=== PATIENT | male | born 1965 | race Caucasian/White ===

== ENCOUNTER 2016-12-18 01:29 | Emergency (ER) | payer SELFPAY | END 2016-12-18 03:28 | disposition home or self-care (01) | LOC: D.ER 01:29 | DX: S30.861A Insect bite (nonvenomous) of abdominal wall, initial encounter (principal); S80.861A Insect bite (nonvenomous), right lower leg, initial encounter; S80.862A Insect bite (nonvenomous), left lower leg, initial encounter; S40.261A Insect bite (nonvenomous) of right shoulder, initial encounter; S40.262A Insect bite (nonvenomous) of left shoulder, initial encounter; S20.469A Insect bite (nonvenomous) of unspecified back wall of thorax, initial encounter; W57.XXXA Bitten or stung by nonvenomous insect and other nonvenomous arthropods, initial encounter; Y93.89 Activity, other specified; Y92.029 Unspecified place in mobile home as the place of occurrence of the external cause; F17.200 Nicotine dependence, unspecified, uncomplicated ==

== ENCOUNTER 2017-12-25 22:20 | Emergency (ER) | payer MEDICAID ==
[~2017-12-25] VITALS: Ht 177.8 cm; Wt 81.8 kg
[2017-12-25 22:22] VITALS: Ht 177.8 cm; Wt 81.8 kg
[2017-12-25] MEDS ORDERED: OMEPRAZOLE40 MG (22:25)
[2017-12-25] MEDS ORDERED: OXY IR30 MG (22:25)
[2017-12-25] MEDS ORDERED: FENTANYL PATCH TRANSDERM (22:26)
[2017-12-25 23:21] LABS: BASOPHILS 0.2 % (0-2); EOSINOPHILS 0.5 % (0-7); HEMOGLOBIN 15.7 g/dL (13.5-17.5); IMMATURE GRANULOCYTES 0.2 % (0-5); LYMPHOCYTES 13.9 % (15-50); MCH 31.9 pg (26.0-34.0); MCHC 34.9 g/dL (31.0-37.0); MCV 91.5 fL (80.0-100.0); MONOCYTES 6.3 % (2-11); NEUTROPHILS 78.9 % (40-80); PLATELET COUNT 211 10x3/uL (130-400); RBC 4.92 10x6/uL (4.20-6.10); RDW 12.6 % (11.5-14.5); WBC 13.1 10x3/uL (4.8-10.8)
[2017-12-25 23:23] LABS: ALBUMIN 4.5 g/dL (3.4-5.0); ALKALINE PHOSPHATASE 92 U/L (46-116); ALT (SGPT) 58 U/L (10-68); BILIRUBIN - TOTAL 0.47 mg/dL (0.2-1.3); CALC OSMOLALITY 280 mosm/kg (275-300); CALCIUM 9.7 mg/dL (8.5-10.1); CARBON DIOXIDE 28.3 mmol/L (21.0-32.0); CHLORIDE - SERUM 101 mmol/L (98-107); CREATININE - SERUM 1.1 mg/dL (0.6-1.3); GLUCOSE 98 mg/dL (74-106); PROTEIN - SERUM 9.3 g/dL (6.4-8.2); SODIUM 140 mmol/L (136-145); UREA NITROGEN 18 mg/dL (7-18); eGFR NON AFRICAN AMERICAN 75 mL/min (90-120)
[2017-12-25 23:35] LABS: AMYLASE - SERUM 281 U/L (25-115); CKMB 0.8 U/L (0.0-3.6); CREATINE KINASE 90 UL (21-232); LIPASE 215 U/L (73-393); TROPONIN-I < 0.017 ng/mL (0.000-0.060)
[2017-12-25 23:44] LABS: UDS - AMPHET NEGATIVE QUAL (NEGATIVE); UDS - BARB NEGATIVE QUAL (NEGATIVE); UDS - BENZO NEGATIVE QUAL (NEGATIVE); UDS - COCAINE POSITIVE QUAL (NEGATIVE); UDS - OPIATE POSITIVE QUAL (NEGATIVE); UDS - PCP NEGATIVE QUAL (NEGATIVE); UDS - THC NEGATIVE QUAL (NEGATIVE)
[2017-12-25 23:47] LABS: APPEARANCE HAZY (CLEAR); BILIRUBIN NEGATIVE (NEGATIVE); COLOR YELLOW (YELLOW); GLUCOSE NEGATIVE (NEGATIVE); KETONE NEGATIVE (NEGATIVE); NITRITE NEGATIVE (NEGATIVE); PROTEIN 1+ mg/dL (NEGATIVE); UROBILINOGEN NORMAL (NORMAL)
[2017-12-25 23:50] LABS: BACTERIA FEW /hpf (NONE SEEN); EPITHELIAL CELLS 0-5 /hpf (0-5); RED CELLS - URINE 0-5 /hpf (0-5)
[2017-12-26] MEDS ORDERED: BENTYL10 MG PO (00:53)
[2017-12-26] MEDS ORDERED: ZOFRAN4 MG PO (00:53)
[2017-12-26 01:15] VITALS: BP 129/70
== END 2017-12-26 01:18 | disposition home or self-care (01) ==
LOC: D.ER 22:20
PROVIDERS: Family Medicine
DX: K29.70 Gastritis, unspecified, without bleeding (principal); K76.9 Liver disease, unspecified; K21.9 Gastro-esophageal reflux disease without esophagitis; F17.200 Nicotine dependence, unspecified, uncomplicated

== ENCOUNTER 2019-07-03 09:11 | Inpatient (IN) | payer MEDICAID ==
[~2019-07-03] VITALS: Ht 177.8 cm; Wt 68.0 kg
[~2019-07-03 09:11] MED LIST: BENTYL10 MG PO; FENTANYL PATCH TRANSDERM; OMEPRAZOLE40 MG; OXY IR30 MG; ZOFRAN4 MG PO
[2019-07-03 09:38] LABS: BASOPHILS 0.1 % (0-2); EOSINOPHILS 0.4 % (0-7); HEMATOCRIT 37.8 % (42.0-54.0); HEMOGLOBIN 12.5 g/dL (13.5-17.5); IMMATURE GRANULOCYTES 0.6 % (0-5); LYMPHOCYTES 16.3 % (15-50); MCH 28.7 pg (26.0-34.0); MCHC 33.1 g/dL (31.0-37.0); MCV 86.7 fL (80.0-100.0); MEAN PLATELET VOLUME 8.7 fL (7.4-10.4); NEUTROPHILS 74.6 % (40-80); RBC 4.36 10x6/uL (4.20-6.10); RDW 14.2 % (11.5-14.5); WBC 15.7 10x3/uL (4.8-10.8)
[2019-07-03 09:41] LABS: PLATELET COUNT 278 10x3/uL (130-400)
[2019-07-03 09:47] LABS: CALC OSMOLALITY 264 mosm/kg (275-300); CALCIUM 9.3 mg/dL (8.5-10.1); CARBON DIOXIDE 23.1 mmol/L (21.0-32.0); CHLORIDE - SERUM 97 mmol/L (98-107); CREATININE - SERUM 1.2 mg/dL (0.6-1.3); GLUCOSE 130 mg/dL (74-106); POTASSIUM - SERUM 3.6 mmol/L (3.5-5.1); SODIUM 130 mmol/L (136-145); UREA NITROGEN 17 mg/dL (7-18); eGFR NON AFRICAN AMERICAN 67 mL/min (90-120)
[2019-07-03 09:56] LABS: ALBUMIN 3.4 g/dL (3.4-5.0); ALKALINE PHOSPHATASE 71 U/L (30-120); ALT (SGPT) 18 U/L (10-68); AMYLASE - SERUM 98 U/L (25-115); BILIRUBIN - TOTAL 0.94 mg/dL (0.2-1.3); LIPASE 99 U/L (73-393); TROPONIN-I < 0.017 ng/mL (0.000-0.060)
[2019-07-03 10:24] VITALS: BP 111/65
[2019-07-03 11:04] LABS: C-REACTIVE PROTEIN 16.4 mg/dL (0.0-0.9)
[2019-07-03 11:15] VITALS: BP 97/68
--- NOTE | 2019-07-03 11:18 | NUR ---
REPORT TO HERIBERTO CARRANZA
--- NOTE | 2019-07-03 11:20 | NUR ---
ADMIT TO ROOM # 2210, CONDITION STABLE, NS INFUSING @ 999 ML/HR AND AZITHROMYCIN 500MG INFUSING @ 250 ML/HR
--- NOTE | 2019-07-03 11:33 | NUR ---
RECEIVED PATIENT FROM ER. ALERT AND ORIENTED. UP AD GONSALO. C/O PAIN TO RIGHT LOWER RIBS. NO S/S OF ACUTE DISTRESS NOTED. VITALS STABLE. IV TO LEFT FOREARM, SL. SITE PATENT WITHOUT REDNESS OR SWELLING. DENIES ANY NEEDS AT THIS TIME. CALL LIGHT IN REACH. WILL CONTINUE TO MONITOR.
[2019-07-03 11:47] LABS: ERYTHROCYTE SEDIMENTATION RATE 58 mm/hr (0-20)
[2019-07-03 13:28] VITALS: BP 98/57
[2019-07-03 13:38] VITALS: BP 98/57; BMI 21.5
--- NOTE | 2019-07-03 17:02 | NUR ---
PATIENT NOT NPO FOR TEST, CALLED DR CASTANEDA WHO STATED WE COULD MAKE NPO AFTER MIDNIGHT AND DO SCAN IN THE MORNING. PATIENTS NURSE NOTIFIED OF THIS WELL.
--- NOTE | 2019-07-03 19:56 | NUR ---
EVENING ROUNDS COMPLETE. PT LAYING IN BED. NO SIGNS OF DISTRESS. AAOX4. PT DENIES ANY PAIN OR NEEDS AT THIS TIME. CL IN REACH, BED IN LOWEST POSITION.
[2019-07-03 20:00] VITALS: BP 101/71
--- NOTE | 2019-07-03 20:34 | NUR ---
PT IS REFUSING FSBS. STATES HE DOESNT DO IT AT HOME SO HE DOESNT NEED TO DO IT HERE. THIS NURSE TRIED TO EXPLAIN TO PT IMPORTANCE OF TRACKING BLOOD SUGARS WHILE ON STEROIDS. PT IS STILL REFUSING. PT APPEARS DIAPHORETIC. AGAIN TRIED TO GET PT TO ALLOW THIS NURSE TO CHECK BLOOD SUGAR. PT STILL REFUSES. CL IN REACH, BED IN LOWEST POSITION. PT IS NOW ON TELE.
[2019-07-04] VITALS: BP 104/67
[2019-07-04 04:00] VITALS: BP 107/69
[2019-07-04 04:51] LABS: BASOPHILS 0.1 % (0-2); EOSINOPHILS 0 % (0-7); HEMOGLOBIN 13.3 g/dL (13.5-17.5); IMMATURE GRANULOCYTES 0.4 % (0-5); LYMPHOCYTES 5.6 % (15-50); MCH 28.4 pg (26.0-34.0); MCHC 32.4 g/dL (31.0-37.0); MCV 87.6 fL (80.0-100.0); MEAN PLATELET VOLUME 9.1 fL (7.4-10.4); MONOCYTES 3.3 % (2-11); NEUTROPHILS 90.6 % (40-80); PLATELET COUNT 289 10x3/uL (130-400); RBC 4.68 10x6/uL (4.20-6.10); RDW 14.2 % (11.5-14.5); WBC 18.9 10x3/uL (4.8-10.8)
--- NOTE | 2019-07-04 04:58 | NUR ---
PT REFUSING FSBS AT THIS TIME.
[2019-07-04 05:10] LABS: ALBUMIN 3.1 g/dL (3.4-5.0); ALKALINE PHOSPHATASE 62 U/L (30-120); ALT (SGPT) 15 U/L (10-68); CALC OSMOLALITY 272 mosm/kg (275-300); CALCIUM 9.5 mg/dL (8.5-10.1); CARBON DIOXIDE 24.9 mmol/L (21.0-32.0); CHLORIDE - SERUM 101 mmol/L (98-107); CREATININE - SERUM 0.9 mg/dL (0.6-1.3); GLUCOSE 148 mg/dL (74-106); SODIUM 134 mmol/L (136-145); UREA NITROGEN 19 mg/dL (7-18); eGFR NON AFRICAN AMERICAN > 90 mL/min (90-120)
[2019-07-04 05:14] LABS: POTASSIUM - SERUM 4.4 mmol/L (3.5-5.1)
[2019-07-04 09:14] VITALS: BP 102/69
[2019-07-04 11:10] VITALS: BMI 21.5
[2019-07-04 13:45] VITALS: BP 96/66
[2019-07-04 15:22] VITALS: Ht 177.8 cm; Wt 68.0 kg
[2019-07-04 16:57] VITALS: BP 95/58
--- NOTE | 2019-07-04 18:53 | NUR ---
RECEIVED BEDSDIE REPORT. PATIENT IS ALERT AND ORIENTED, RESTING COMFORTABLY IN BED. RESPIRATIONS ARE EVEN AND UNLABORED. NO S/S OF DISTRESS. NO C/O PAIN. CALL LIGHT WITHIN REACH. WILL CPOC.
[2019-07-04 20:00] VITALS: BP 110/65
[2019-07-04 20:52] LABS: BILIRUBIN NEGATIVE (NEGATIVE); GLUCOSE NEGATIVE (NEGATIVE); KETONE NEGATIVE (NEGATIVE); NITRITE NEGATIVE (NEGATIVE); UROBILINOGEN NORMAL (NORMAL)
[2019-07-04 20:53] LABS: BACTERIA MODERATE /hpf (NEGATIVE); EPITHELIAL CELLS 0-5 /hpf (0-5); WHITE CELLS - URINE 25-50 /hpf (NEGATIVE)
[2019-07-04 21:31] LABS: UDS - AMPHET NEGATIVE QUAL (NEGATIVE); UDS - BARB NEGATIVE QUAL (NEGATIVE); UDS - BENZO NEGATIVE QUAL (NEGATIVE); UDS - COCAINE NEGATIVE QUAL (NEGATIVE); UDS - OPIATE POSITIVE QUAL (NEGATIVE); UDS - PCP NEGATIVE QUAL (NEGATIVE); UDS - THC NEGATIVE QUAL (NEGATIVE)
[2019-07-05] VITALS (8 sets, daily range): BP systolic 94–140; BP diastolic 57–102
[2019-07-05 08:11] LABS: IMMUNOGLOBULIN A 230 mg/dL (90-386); IMMUNOGLOBULIN G 2270 mg/dL (603-1613)
--- NOTE | 2019-07-05 10:16 | NUR ---
advised pt to ambulate at this time, pt declined stating he is going to take a nap and he will ambulate later
--- NOTE | 2019-07-05 11:18 | MORECARE ---
CASE MANAGEMENT DISCHARGE SUMMARY PATIENT: FRANCISCO CISSE UNIT: [id number] ADM DATE: 07/03/19 AGE: 53 : 66 SEX: M ROOM/BED: D.2111 AUTHOR: GOOD TORRES PHYSICIAN: REFERRING PHYSICIAN: PUMA IQBAL MD DATE OF SERVICE: 07/05/19 Discharge Plan Patient Name: FRANCISCO CISSE [facility] [facility] 1965 Planned Disposition: Home Anticipated Discharge Date: Discharge Date: Expected LOS: Initial Reviewer: [email or web address] Initial Review Date: 07/05/2019 Generated: 07/05/19 12:17 pm Patient Name: FRANCISCO CISSE Page [phone] at 1118 All edits/amendments must be made on the electronic document DICTATION DATE: 07/05/19 111 BUILDING MAINTENANCE MECHANIC: ROSE 07/05/19 1117 RPT#: [id number] DC DATE: STATUS: ADM IN [facility] [address] [place] [address] END OF REPORT
--- NOTE | 2019-07-05 11:30 | MORECARE ---
CASE MANAGEMENT DISCHARGE SUMMARY PATIENT: FRANCISCO CISSE UNIT: [id number] ADM DATE: 07/03/19 AGE: 53 : 67 SEX: M ROOM/BED: D.2111 AUTHOR: GOOD TORRES PHYSICIAN: REFERRING PHYSICIAN: PUMA IQBAL MD DATE OF SERVICE: 07/05/19 Discharge Plan Patient Name: FRANCISCO CISSE [facility] [facility] 1965 Planned Disposition: Home Anticipated Discharge Date: Discharge Date: Expected LOS: Initial Reviewer: [email or web address] Initial Review Date: 07/05/2019 Generated: 07/05/19 12:29 pm DCPIA - Discharge Planning Initial Assessment Updated by [email or web address]: Shanita Townsend on 07/05/19 11:23 am * Is the patient Alert and Oriented? Yes * How many steps to enter\exit or inside your home? 2/0 * PCP Dr. Eitan Baird in [facility] * Pharmacy [facility] * Preadmission Environment Home with Family * ADLs Independent * Equipment Other * Other Equipment Blood Pressure machine * List name and contact numbers for known caregivers / representatives who currently or will assist patient after discharge: Darlyn cox branson [phone] [facility] - [phone] * Verbal permission to speak to the caregivers and representatives has been obtained from the patient. Yes * Community resources currently utilized None * Additional services required to return to the preadmission environment? No * Can the patient safely return to the preadmission environment? Yes * Has this patient been hospitalized within the prior 30 days at any hospital? No Last DP export: 07/05/19 10:17 a Patient Name: FRANCISCO CISSE Page 82168 at 1130 All edits/amendments must be made on the electronic document DICTATION DATE: 07/05/191128 ETHYLBENZENE CRACKING SUPERVISOR: ROSE 07/05/19 1129 RPT#: [id number] DC DATE: STATUS: ADM IN [facility] [address] [place] [address] END OF REPORT
--- NOTE | 2019-07-05 11:49 | MORECARE ---
CASE MANAGEMENT DISCHARGE SUMMARY PATIENT: FRANCISCO CISSE UNIT: [id number] ADM DATE: 07/03/19 AGE: 53 : 67 SEX: M ROOM/BED: D.2111 AUTHOR: BRIANDOC PHYSICIAN: REFERRING PHYSICIAN: PUMA IQBAL MD DATE OF SERVICE: 07/05/19 Discharge Plan Patient Name: FRANCISCO CISSE Facility: [facility]:[place] : 1965 Planned Disposition: Home Anticipated Discharge Date: Discharge Date: Expected LOS: Initial Reviewer: [email or web address] Initial Review Date: 07/05/2019 Generated: 07/05/19 12:49 pm Comments DCP- Discharge Planning Updated by [email or web address]: Shanita Townsend on 07/05/19 10:[address] Patient Name: FRANCISCO CISSE Admission Status: ER Accout number: [id number] Admission Date: 07-03-2019 : 1965 Admission Diagnosis:PNEUMONIA, UNSPECIFIED ORGANISM Attending: PUMA CASTANEDA Current LOS: 2 Anticipated DC Date: Planned Disposition: Home Primary Insurance: [place] PRIVATE OPTIONS OVIDIO Discharge Planning Comments: CM met with patient to complete initial dc planning assessment. CM educated patient on the CM role and verbal consent given by patient to complete assessment. Patient lives at home with his spouse, 14 year old daughter, 5 year old niece. He plans to return home with his family at discharge and feels this is a safe discharge. States he does not have a local PCP and does not want a local PCP. I informed him of the difficulties of not having a PCP established in the town he lives in. He states he goes to [place] once a month to see Dr. Eitan Baird, and does not want to change to a local doctor. He states he has a blood pressure cuff. States he is independent with all ADL's and IADL's and declines need for home health or DME. States his family will take him home on discharge. CM will continue to follow and assist with discharge planning/needs. Quality Management Coordinator: Shanita Townsend DCPIA - Discharge Planning Initial Assessment Updated by [email or web address]: Shanita Townsend on 07/05/19 11:23 am * Is the patient Alert and Oriented? Yes * How many steps to enter\exit or inside your home? 2/0 * PCP Dr. Eitan Baird in [facility] * Pharmacy [facility] * Preadmission Environment Home with Family * ADLs Independent * Equipment Other * Other Equipment Blood Pressure machine * List name and contact numbers for known caregivers / representatives who currently or will assist patient after discharge: Darlyn spouse - [phone] [facility] - [phone] * Verbal permission to speak to the caregivers and representatives has been obtained from the patient. Yes * Community resources currently utilized None * Additional services required to return to the preadmission environment? No * Can the patient safely return to the preadmission environment? Yes * Has this patient been hospitalized within the prior 30 days at any hospital? No Last DP export: 07/05/19 10:30 a Patient Name: FRANCISCO CISSE Page [phone] at 1149 All edits/amendments must be made on the electronic document DICTATION DATE: 07/05/19 1149 MANAGER LEARNING: ROSE 07/05/19 1149 RPT#: [id number] DC DATE: STATUS: ADM IN [facility] [address] [place] [address] END OF REPORT
--- NOTE | 2019-07-05 12:12 | EC ---
PATIENT:FRANCISCO CISSE DATE OF SERVICE: 07/03/19 SEX: M MEDICAL RECORD: [id number] DATE OF : [birth year] LOCATION:D.M2 D.211 AGE OF PATIENT: 53 ADMISSION DATE: 07/03/19 REFERRING PHYSICIAN: INTERPRETING PHYSICIAN: CHARANJIT JONES MD ECHOCARDIOGRAM REPORT ECHO CHARGES 4 ECHO COMPLETE Date: 07/04/19 CLINICAL DIAGNOSIS: HX OF VSD/ASD/SOB AND AFIB ECHOCARDIOGRAPHIC MEASUREMENTS (adult normal given) AC root (d.<3.7cm) 3.3 cm LV Septum d (<1.2 cm> 1.2 cm Valve Excursion 2.2 cm LV Septum (systole) 1.4 cm Left Atria (s.<4.0cm> 4.3 cm LVPW d(<1.2cm) 1.3 cm RV (d.<2.3cm) 4.2 cm LVPW (sytole) 1.7 cm LV diastole(<5.6CM) 4.6 cm MV E-F(>70mm/sec) cm LV systole 2.5 cm LVOT Diameter 2.2 cm MV exc.(>10mm) 1.7 cm Est.ejection fraction (50-75%) % DOPPLER: LVIT cm/sec A 61.0 cm/sec E 74.0 cm/sec LA cm/sec RVSP 32 mmHg LVOT 93 cm/sec AOP1/2T m/s Asc. Ao 114 cm/sec RVOT 131 cm/sec RA cm/sec PA 239 cm/sec AV Gradient Peak 5.17 mmHg AV Mean 2.97 mmHg AV Area 2.5 cm MV Gradient Peak 3.36 mmHg MV Mean 1.44 mmHg MV Area cm COMMENTS: Transaction Manager: 2 TINY JOSEPH Qc Manager: 3 Dr. Guardado TAPE# PACS Pericardial Effusion N DATE OF SERVICE: Adequate 2D, color flow imaging, spectral Doppler, and M-Mode. Borderline to mild LVH. LV internal dimensions are normal, may be mild hypokinesis septal base. Overall, LV function, however, was well preserved at 50% or better. Aortic valve is tricuspid. No evidence of stenosis by Doppler interrogation. There is trivial AI by color flow imaging. Left atrium is mildly dilated at 4.3 cm. Mitral valve shows no prolapse and trace to mild MR. Right-sided chambers grossly appear normal. Mild TR. Mild IN. RV systolic ECHOCARDIOGRAM REPORT [id number] FRANCISCO CISSE pressure is estimated greater than 32 mmHg via the continuity equation and some of this made a small VSD, have probably membranous septum and ASD. These are very tiny. There is no evidence of right heart overload or increased PA pressures. TRANSINT:[id number] Voice Confirmation ID: [id number] DOCUMENT ID: [id number] CHARANJIT JONES MD at 1212 CC: [id number] DICTATION DATE: 07/04/19 1305 CONSTRUCTION PROJECT ASSISTANT: 07/04/19 1410 ADM IN [facility] [address] [place] [address]
--- NOTE | 2019-07-05 13:03 | NUR ---
pt instructed on the need to get OOB, instructed to try to sit up for approx 1 hour at a time. Pt declined reports his lung pain is a 6-7 and he needs his morphine and he is going to take nap.
--- NOTE | 2019-07-05 22:05 | NUR ---
INITAIL ROUNDS COMPLETED AT 1910 HRS. NO DISTRESS NOTED. ASSESSMENT COMPLETED AT 1945 HRS. VSS. ALERT AND ORIENTED TO PERSON, PLACE AND TIME. NAGY. PALPABLE PERIPHERAL PULSES. IV TO LFA SL. SR PER CM HR 68. SYSTOLIC MURMUR NOTED. OXYCODONE IR 30 MG PO GIVEN FOR C/O CHRONIC BACK AND KNEE PAIN. PM MEDS GIVENPER ORDERS. MORPHINE 4MG SIVP GIVEN FOR C/O CHRONIC BACK/KNEE PAIN AT 2136. PT STEPHETISAMARY WAQTCHING TV. NO DISTRESS NOTED. CALL LIGHT WITHIN REACH.
--- NOTE | 2019-07-05 23:35 | NUR ---
PT STATES HE CAN'T BREATHE. O2 SAT 97% ON RA. LUNGS CTA. COOL WASHCLOTH PLACED ON HEAD. EMOTINAL SUPPORT GIVEN. PT STATED HE FELT BETTER AFTER SEVERAL MINUTES.
--- NOTE | 2019-07-06 00:13 | NUR ---
PT RESTING WITH EYES CLOSED. RESP EVEN AND REGULAR. CALL LIGHT WITHIN REACH.
[2019-07-06 00:30] VITALS: BP 109/55
--- NOTE | 2019-07-06 02:28 | NUR ---
EUGENIE; STATES [PIAN NOW 05/16. CALL LIGHT WITHIN REACH.
[2019-07-06 04:30] VITALS: BP 100/62
--- NOTE | 2019-07-06 04:39 | NUR ---
PT RESTING WITH EYES CLOSED. RESP EVEN AND REGULAR. CALL LIGHT WITHIN REACH.
[2019-07-06 04:47] LABS: BASOPHILS 0.1 % (0-2); EOSINOPHILS 0.1 % (0-7); HEMATOCRIT 34.6 % (42.0-54.0); HEMOGLOBIN 11.1 g/dL (13.5-17.5); IMMATURE GRANULOCYTES 0.9 % (0-5); LYMPHOCYTES 11.2 % (15-50); MCH 28.8 pg (26.0-34.0); MCHC 32.1 g/dL (31.0-37.0); MCV 89.6 fL (80.0-100.0); MEAN PLATELET VOLUME 9.6 fL (7.4-10.4); MONOCYTES 6.3 % (2-11); NEUTROPHILS 81.4 % (40-80); PLATELET COUNT 303 10x3/uL (130-400); RBC 3.86 10x6/uL (4.20-6.10); RDW 14.4 % (11.5-14.5); WBC 18.9 10x3/uL (4.8-10.8)
[2019-07-06 05:40] LABS: ALBUMIN 2.5 g/dL (3.4-5.0); ALKALINE PHOSPHATASE 53 U/L (30-120); ALT (SGPT) 19 U/L (10-68); BILIRUBIN - TOTAL 0.09 mg/dL (0.2-1.3); CALC OSMOLALITY 280 mosm/kg (275-300); CALCIUM 8.6 mg/dL (8.5-10.1); CARBON DIOXIDE 23.1 mmol/L (21.0-32.0); CHLORIDE - SERUM 106 mmol/L (98-107); CREATININE - SERUM 0.8 mg/dL (0.6-1.3); GLUCOSE 130 mg/dL (74-106); POTASSIUM - SERUM 3.6 mmol/L (3.5-5.1); SODIUM 138 mmol/L (136-145); UREA NITROGEN 22 mg/dL (7-18); eGFR NON AFRICAN AMERICAN > 90 mL/min (90-120)
[2019-07-06 06:09] LABS: IGG SUBCLASS 1 1400 mg/dL (248-810); IGG SUBCLASS 2 469 mg/dL (130-555); IGG SUBCLASS 3 192 mg/dL (15-102); IGG SUBCLASS 4 69 mg/dL (2-96); IGGS - IGG SERUM 2200 mg/dL (603-1613)
--- NOTE | 2019-07-06 06:09 | NUR ---
MORPHINE 4MG SIVP GIVEN FOR C/O CHRONIC BACK AND KNEE PAIN. VSS THROUGHOUT SHIFT. NEEDS MET; WILL CONTINUE TO MONITOR.
--- NOTE | 2019-07-06 07:46 | NUR ---
OXYCODONE GIVEN FOR PAIN LEVEL OF 7/10. PT A/O X4, RESP EVEN AND NONLABORED ON RA. PT DENIES ANY OTHER NEEDS AT THIS TIME.C ALL LIGHT IN REACH, NAD NOTED, WILL CONTINUE TO MONITOR.
[2019-07-06 08:10] LABS: ANGIOTENSIN CONVERTING ENZYME 49 U/L (14-82)
--- NOTE | 2019-07-06 08:42 | NUR ---
AM MEDS GIVEN AT THIS TIME. IVPB VANC HUNG AT THIS TIME. PT C/O IV BURNING AT TIMES WHEN MEDICATIONS GO IN. OFFERED TO START NEW IV AT THIS TIME. PT VERBALIZED " I HAVE REALLY BAD VEINS AND IT TOOK THEM FOR EVER TO GET THIS ONE STARTED." PT WANTED TO KNOW WHEN IS THE NEXT TIME THAT I WILL GET ANTIBIOTICS, INFORMED HIM THAT HIS NEXT ANTIBIOTIC WILL BE AT 1545. PT DECLINED TO HAVE NEW IV STARTED AT THIS TIME. PT WANTS TO WAIT UNTIL SEEN BY DR. MCKEON TO SEE IF HE CAN GO HOME. PT DENIES ANY OTHER NEEDS AT THIS TIME. CALL LIGHT IN REACH, NAD NOTED, WILL CONTINUE TO MONITOR.
--- NOTE | 2019-07-06 10:06 | NUR ---
4MG OF MORPHINE FOR PAIN LEVEL OF 8/10. PT DENIES ANY OTHER NEEDS AT THIS TIME. CALL LIGHT IN REACH, NAD NOTED, WILL CONTINUE TO MONITOR.
[2019-07-06 10:14] VITALS: BP 101/66
[2019-07-06 14:22] VITALS: BP 114/45
--- NOTE | 2019-07-06 16:00 | NUR ---
PT UPSET ABOUT WHERE IV WAS GOING TO BE PLACED AND BECAUSE NURSE WAS NOT GOING TO USE THE SMALLEST NEEDEL. WAS C/O THAT HE WAS NOT GOING TO BE ABLE TO EAT, DRINK OR WIPE HIS "ASS" BECAUSE HIS IV WAS GOING TO BE IN HIS RT WRIST, WHICH WAS THE ONLY PLACE WHERE A GOOD VEIN WAS VISIBLE. PT STATED THAT HE WAS GOING TO LEAVE AMA BECAUSE HE WAS TIRED OF DEALING WITH THE SAME STUFF HE DID AT THE OTHER HOSPITAL. TRIED TO PERSUADE PT TO STAY THAT THIS NURSE WOULD SEE IF IV COULD BE STARTED ON LEFT UPPER ARM SINCE LAST IV THAT WAS NOT WORKING HAS REMOVED FROM LT WRIST/FOREARM AREA. PT STILL REFUSED TO STAY AND PULLED HEART MNONITOR OFF AND STARTED PACKING HIS BELONGINGS. PT SIGNED AMA PAPERS, FAVIO COLEMAN APRN WAS NOTIFIED. PT LEFT UNIT WITH ALL BELONGIGNS, VIA AMBULATORY.
--- NOTE | 2019-07-06 16:05 | NUR ---
THIS RESIDENTIAL GREEN BUILDING DESIGNER WENT TO ADMINISTER PAIN MEDICATION TO PATIENT UPON HIS REQUEST. PATIENT STATED HIS IV HAS BEEN BURNING FOR 2 DAYS AND MIGHT NEED A NEW ONE PLACED. THIS RESIDENTIAL GREEN BUILDING DESIGNER ATTEMPTED TO FLUSH IV AND PATIENT COMPLAINS OF INTENSE BURNING. THIS RESIDENTIAL GREEN BUILDING DESIGNER ASSESSING PATIENT VEINS TO ESTABLISH NEW IV ACCESS. THIS RESIDENTIAL GREEN BUILDING DESIGNER WAS GOING TO PLACE AN IV TO THE RIGHT WRIST DUE TO THE IV IN THE LEFT FOREARM REQUIRED THIS RESIDENTIAL GREEN BUILDING DESIGNER TO STICK ABOVE THE CURRENT SITE AND PATIENT HAS NO ACCESS ABOVE LEFT FOREARM. PATIENTS ASSIGNED NURSE IN ROOM. THIS RESIDENTIAL GREEN BUILDING DESIGNER HAD TURNICATE ON PATIENT WHEN PATIENT BECAME ANGRY AND SAID HE COULD NOT DEAL WITH AN IV BEING PLACED IN HIS RIGHT HAND BECAUSE HE IS RIGHT HANDED AND HE WAS READY TO CHECK OUT OF THIS PLACE ANYWAY. THIS RESIDENTIAL GREEN BUILDING DESIGNER REMOVED TURNICATE AND ASKED HIS ASSIGNED NURSE TO PLEASE REASSESS LEFT ARM FOR IV SITE PLACEMENT TO PREVENT PATIENT FROM LEAVING AMA. PATIENT REFUSED TO LET ASSIGNED NURSE LOOK FOR IV PLACEMENT, TOOK OFF TELEMETRY AND STATED HE WAS LEAVING. THIS RESIDENTIAL GREEN BUILDING DESIGNER EXITED ROOM AND PROCEEDED TO WASTE MORPHINE WITH ANOTHER NURSE ON UNIT. THIS RESIDENTIAL GREEN BUILDING DESIGNER WITNESSED AMA FORM SIGNED BY PATIENT.
[2019-07-07 16:08] LABS: AEROBE ID Preliminary report (())
--- NOTE | 2019-07-08 16:30 | MORECARE ---
CASE MANAGEMENT DISCHARGE SUMMARY PATIENT: FRANCISCO CISSE UNIT: [id number] ADM DATE: 07/03/19 AGE: 53 : 67 SEX: M ROOM/BED: D.2111 AUTHOR: GOOD TORRES PHYSICIAN: REFERRING PHYSICIAN: PUMA IQBAL MD DATE OF SERVICE: 07/08/19 Discharge Plan Patient Name: FRANCISCO CISSE Facility: [facility]:[place] : 1965 Planned Disposition: Home Anticipated Discharge Date: Discharge Date: 07/06/2019 Expected LOS: 0 Initial Reviewer: [email or web address] Initial Review Date: 07/05/2019 Generated: 07/08/19 5:30 pm Comments DCP- Discharge Planning Updated by [email or web address]: Shanita Townsend on 07/05/19 10:[address] Patient Name: FRANCISCO CISSE Admission Status: ER Accout number: [id number] Admission Date: 07-03-2019 : 1965 Admission Diagnosis:PNEUMONIA, UNSPECIFIED ORGANISM Attending: PUMA CASTANEDA Current LOS: 2 Anticipated DC Date: Planned Disposition: Home Primary Insurance: [place] PRIVATE OPTIONS OVID[place] Discharge Planning Comments: CM met with patient to complete initial dc planning assessment. CM educated patient on the CM role and verbal consent given by patient to complete assessment. Patient lives at home with his spouse, 14 year old daughter, 5 year old niece. He plans to return home with his family at discharge and feels this is a safe discharge. States he does not have a local PCP and does not want a local PCP. I informed him of the difficulties of not having a PCP established in the town he lives in. He states he goes to [place] once a month to see Dr. Eitan Baird, and does not want to change to a local doctor. He states he has a blood pressure cuff. States he is independent with all ADL's and IADL's and declines need for home health or DME. States his family will take him home on discharge. CM will continue to follow and assist with discharge planning/needs. Airline Security Representative: Shanita Townsend DCPIA - Discharge Planning Initial Assessment Updated by [email or web address]: Shanita Townsend on 07/05/19 11:23 am * Is the patient Alert and Oriented? Yes * How many steps to enter\exit or inside your home? 2/0 * PCP Dr. Eitan Baird in [facility] * Pharmacy [facility] * Preadmission Environment Home with Family * ADLs Independent * Equipment Other * Other Equipment Blood Pressure machine * List name and contact numbers for known caregivers / representatives who currently or will assist patient after discharge: Darlyn spouse - [phone] [facility] DTR [phone] * Verbal permission to speak to the caregivers and representatives has been obtained from the patient. Yes * Community resources currently utilized None * Additional services required to return to the preadmission environment? No * Can the patient safely return to the preadmission environment? Yes * Has this patient been hospitalized within the prior 30 days at any hospital? No Last DP export: 07/05/19 10:49 a Patient Name: FRANCISCO CISSE Page [id number] at 1630 All edits/amendments must be made on the electronic document DICTATION DATE: 07/08/19 1630 LICENSED CHEMICAL SPRAY TECHNICIAN: ROSE 07/08/19 1630 RPT#: [id number] DC DATE:07/06/19 STATUS: DIS IN [facility] [address] [place] [address] END OF REPORT
== END 2019-07-06 16:11 | disposition left against medical advice (07) | DRG 190 ==
LOC: D.ER 09:11 → D.M2 10:58 → D.MS 10:58 → D.M2 14:19
PROVIDERS: Emergency Medicine; Family Medicine; Internal Medicine Pulmonary Disease; ADMIT Family Medicine; ATTEND Family Medicine
DX: J44.0 Chronic obstructive pulmonary disease with (acute) lower respiratory infection (principal); J18.9 Pneumonia, unspecified organism; R78.81 Bacteremia; E87.1 Hypo-osmolality and hyponatremia; R04.2 Hemoptysis; Q21.0 Ventricular septal defect; F17.203 Nicotine dependence unspecified, with withdrawal; J44.1 Chronic obstructive pulmonary disease with (acute) exacerbation; K76.9 Liver disease, unspecified; D64.9 Anemia, unspecified; B19.20 Unspecified viral hepatitis C without hepatic coma; K21.9 Gastro-esophageal reflux disease without esophagitis; I71.4 Abdominal aortic aneurysm, without rupture; I45.10 Unspecified right bundle-branch block; I50.9 Heart failure, unspecified; I48.91 Unspecified atrial fibrillation

== ENCOUNTER 2019-08-31 10:08 | Emergency (ER) | payer MEDICAID ==
[~2019-08-31] VITALS: Ht 177.8 cm; Wt 77.3 kg
[2019-08-31 10:15] VITALS: Ht 177.8 cm; Wt 77.3 kg
[2019-08-31 11:13] LABS: BASOPHILS 0.2 % (0-2); EOSINOPHILS 0.7 % (0-7); HEMATOCRIT 38.6 % (42.0-54.0); HEMOGLOBIN 12.7 g/dL (13.5-17.5); IMMATURE GRANULOCYTES 0.4 % (0-5); LYMPHOCYTES 16.6 % (15-50); MCH 28.2 pg (26.0-34.0); MCHC 32.9 g/dL (31.0-37.0); MCV 85.6 fL (80.0-100.0); MEAN PLATELET VOLUME 8.5 fL (7.4-10.4); MONOCYTES 7.2 % (2-11); NEUTROPHILS 74.9 % (40-80); RBC 4.51 10x6/uL (4.20-6.10); WBC 10.5 10x3/uL (4.8-10.8)
[2019-08-31 11:19] LABS: PLATELET COUNT 213 10x3/uL (130-400)
[2019-08-31] MEDS ORDERED: BACTRIM DS TAB1 EAC1 PO ×2 (11:25→11:28)
[2019-08-31] MEDS ORDERED: HYDROCODON-ACE1 EAC2 PO ×2 (11:25→11:28)
[2019-08-31] MEDS ORDERED: MEDROL DOSE PACK4 MG PO ×2 (11:25→11:28)
[2019-08-31 11:30] LABS: CALC OSMOLALITY 263 mosm/kg (275-300); CALCIUM 9.5 mg/dL (8.5-10.1); CARBON DIOXIDE 26.9 mmol/L (21.0-32.0); CHLORIDE - SERUM 99 mmol/L (98-107); CREATININE - SERUM 0.7 mg/dL (0.6-1.3); GLUCOSE 102 mg/dL (74-106); SODIUM 132 mmol/L (136-145); UREA NITROGEN 10 mg/dL (7-18); eGFR NON AFRICAN AMERICAN > 90 mL/min (90-120)
[2019-08-31 11:34] LABS: C-REACTIVE PROTEIN 4.5 mg/dL (0.0-0.9); URIC ACID 4.6 mg/dL (2.6-7.2)
[2019-08-31 11:48] VITALS: BP 132/76
== END 2019-08-31 11:49 | disposition home or self-care (01) ==
LOC: D.ER 10:08
PROVIDERS: Emergency Medicine
DX: S90.862A Insect bite (nonvenomous), left foot, initial encounter (principal); W57.XXXA Bitten or stung by nonvenomous insect and other nonvenomous arthropods, initial encounter; Y93.9 Activity, unspecified; Y92.9 Unspecified place or not applicable; K21.9 Gastro-esophageal reflux disease without esophagitis; M79.672 Pain in left foot

== ENCOUNTER 2019-09-02 09:39 | Inpatient (IN) | payer MEDICAID ==
[~2019-09-02] VITALS: Ht 152.4 cm; Wt 77.3 kg
[~2019-09-02 09:39] MED LIST changes: +BACTRIM DS TAB1 EAC1 PO; +HYDROCODON-ACE1 EAC2 PO; +MEDROL DOSE PACK4 MG PO
[2019-09-02 10:33] LABS: ANION GAP 16.9 mmol/L (8-16); CALCIUM 9.8 mg/dL (8.5-10.1); POTASSIUM - SERUM 3.9 mmol/L (3.5-5.1)
[2019-09-02 10:34] LABS: CREATININE - SERUM 1.1 mg/dL (0.6-1.3)
[2019-09-02 10:38] LABS: BASOPHILS 0.1 % (0-2); EOSINOPHILS 0.5 % (0-7); HEMATOCRIT 40.1 % (42.0-54.0); HEMOGLOBIN 13.2 g/dL (13.5-17.5); IMMATURE GRANULOCYTES 0.6 % (0-5); LYMPHOCYTES 25.8 % (15-50); MCH 28.4 pg (26.0-34.0); MCHC 32.9 g/dL (31.0-37.0); MCV 86.2 fL (80.0-100.0); MEAN PLATELET VOLUME 9.3 fL (7.4-10.4); MONOCYTES 4.5 % (2-11); NEUTROPHILS 68.5 % (40-80); RBC 4.65 10x6/uL (4.20-6.10); RDW 15.2 % (11.5-14.5)
[2019-09-02 10:40] LABS: ALBUMIN 3.7 g/dL (3.4-5.0); BILIRUBIN - TOTAL 0.24 mg/dL (0.2-1.3); PROTEIN - SERUM 8.9 g/dL (6.4-8.2); URIC ACID 3.5 mg/dL (2.6-7.2)
[2019-09-02 10:57] LABS: PLATELET COUNT 314 10x3/uL (130-400); WBC 17.5 10x3/uL (4.8-10.8)
[2019-09-02 12:39] VITALS: BP 99/67
--- NOTE | 2019-09-02 13:22 | NUR ---
CALLED REPOR TO JAE AT THIS TIME.
[2019-09-02 16:40] VITALS: BP 103/61
[2019-09-02 17:15] VITALS: BP 110/64; Ht 152.4 cm; Wt 77.3 kg
[2019-09-02 20:00] VITALS: BP 98/62
--- NOTE | 2019-09-02 20:00 | NUR ---
ALERT SITTING UP IN BED AGITATED REQUESTING PAIN MEDICATION, INFORMED RECIEVED HYDROCODONE 10 AT 1730, STATES IT DID NOT TOUCH THIS PAIN, LEFT FOOT NOTED TO HAVE SLIGHT REDNESS AND EDEMA TO TOP OF FOOT, SEE SHIFT ASSESSMENT, CALL LIGHT IN REACH INSTRUCTED WILL GIVE MORPHINE ORDERED
--- NOTE | 2019-09-02 20:45 | NUR ---
MORPHINE 4MG GIVEN IV ORDERED, WALKING BOOT PLACED ON LEFT FOOT ORDERED, ELEVATED ON PILLOW, CALL LIGHT IN REACH
--- NOTE | 2019-09-02 22:45 | NUR ---
CALL TO DEE DEE BYNUM, PT VERY AGITATED C/O SEVER PAIN TO LEFT FOOT AND MORPHINE DID NOT HELP AT ALL, ORDER RECIEVED TO DC MORPHINE AND GIVE DILAUDID 1MG IV Q 4HRS GIVEN ORDERED, PT HAS REMOVED WALKING BOOT STATES CANT STAND THE PAIN, FOOT ELEVATED ON PILLOW AND INSTRUCTED TO TRY TO LAY DOWN AND DEEP BREATH,
[2019-09-03] VITALS: BP 106/66
--- NOTE | 2019-09-03 01:00 | NUR ---
VERY AGITATED HAS KNEE IN ROLLING CHAIR FROM ROOM PUSHING SELF OUT INTO HALLWAY DEMANDING TO SEE A DR NEEDS SOMETHING ELSE FOR PAIN WHAT WE HAVE GIVEN HIM SINCE HE GOT TO FLOOR HASNT HELPED AT ALL WANTS TO HAVE DR COME LOOK AT HIS FOOT NOW HE BELIEVES IT IS GETTING WORSE AND HURTING MORE, INFORMED NO DR HERE TONIGHT DR WILL BACK TOMORROW, DEE DEE BYNUM NOTIFIED OF ABOVE, NO MORE PAIN MEDICATION ORDERS INSTRUCTED TO CALL [employer] MUNITIONS HANDLER SUPERVISOR, DR PITTS CALLED INFORMED OF ABOVE STATES HAS ORDERED HIS WALKING BOOT AND TO ELEVATE LEG WILL NOT GIVE PAIN MEDICATION ORDERS, PT STATES WANTS TO GO AMA AND GETTIGN DRESSED, REFUSED TO ALLOW NURSE TO TAKE OUT IV STATES IM GOING DOWN TO ER TO GET SOME PAIN MEDICINE, SECURITY CALLED DUE TO PT THREATENING TO TAKE OUT ANYONE WHO TRIED TO TAKE OUT IV. WHEN SECURITY ARRIVED PT REMOVED IV PER SELF, ESCORTED OUT VIA SECUITY AND MALE IMPORT EXPORT MANAGER, REFUSED TO SIGN AMA PAPERS , DEE DEE AND HS NOTIFIED
== END 2019-09-03 00:20 | disposition left against medical advice (07) | DRG 603 ==
LOC: D.ER 09:39 → D.MS 11:35
PROVIDERS: Family Medicine; ADMIT Emergency Medicine; ATTEND Emergency Medicine
DX: L03.116 Cellulitis of left lower limb (principal); I48.20 Chronic atrial fibrillation, unspecified; Q21.1 Atrial septal defect; Q21.0 Ventricular septal defect; K21.9 Gastro-esophageal reflux disease without esophagitis; B19.20 Unspecified viral hepatitis C without hepatic coma; W57.XXXA Bitten or stung by nonvenomous insect and other nonvenomous arthropods, initial encounter; Z72.0 Tobacco use